=== PATIENT | male | born 1990 | race Caucasian/White ===

== ENCOUNTER 2016-07-06 17:40 | Emergency (ER) | payer OTHER ==
[~2016-07-06] VITALS: Ht 182.9 cm; Wt 68.0 kg
[2016-07-06 17:56] VITALS: BP 131/88; PULSE 126; RESP 16; TEMP 102.6; O2SAT 97
[2016-07-06] MEDS ORDERED: ZITHTAB PO (18:12)
[2016-07-06] MEDS ORDERED: DEXAMETHASONE SOD PHOS 20 MG/5 ML VIAL IV PUSH ONE (18:15)
[2016-07-06] MEDS ORDERED: SODIUM CHLOR 0.9% 1000 ML INJ 1,000 ML IV SCH (18:15)
[2016-07-06] MEDS ORDERED: KETOROLAC TROMETHAMINE 30 MG/ML (IVP) VIAL IV PUSH ONE (18:15)
--- NOTE | 2016-07-06 18:38 | PD ---
HPI Chief Complaint: Fever Time Seen by Provider: 18:02 Travel History International Travel<30 days: No Contact w/Intl Traveler<30days: No Traveled to known affect area: No History of Present Illness HPI So 35-year-old man who presents to the emergency department complaining of throat pain. States about a week or so ago he started getting sore throat and swelling of his tonsils. 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 Put him on a prescription for azithromycin. He states since that time he said worsening pain and swelling in his tonsils. Is having some worsening trouble swallowing. 50 versus Andrea and finds himself spitting sometimes. No shortness of breath. Fevers chills and night sweats especially at night. He didn't take his temperature. He otherwise has been feeling generally well before this. No URI symptoms. Nausea today but no nausea or vomiting before that. No other GI symptoms. Denies IV drug use. Has otherwise been feeling well and healthy. History Past Medical History Medical History: Denies Significant Hx Tetanus Vaccination: < 5 Years Influenza Vaccination: No Social History Alcohol Use: Yes (OCC) Tobacco Use: No Allergies-Medications (Allergen,Severity, Reaction): Coded Allergies: Amoxicillin (Verified Allergy, Intermediate, vomiting, 07/06/16) Reported Meds & Prescriptions Reported Meds & Active Scripts Active Reported Zithromax Z-Mehul (Azithromycin) 250 Mg Dspk 250 Mg PO DIRECTED 500 MG (2 tabs) day 1, then 1 tab days 2-5. Review of Systems Except as stated in HPI: all other systems reviewed are Neg Physical Exam Narrative GENERAL: Well-appearing 25-year-old man, no acute distress. SKIN: Warm and dry. HEAD: Atraumatic. Normocephalic. EYES: Pupils equal and round. No scleral icterus. No injection or drainage. ENT: No nasal bleeding or discharge. Mucous membranes pink and moist. Marked tonsillar adenopathy with purulent drainage. A little bit of pharyngeal erythema. NECK: Trachea midline. Mild anterior cervical adenopathy. CARDIOVASCULAR: Regular rate and rhythm. No murmur appreciated. RESPIRATORY: No accessory muscle use. Clear to auscultation. Breath sounds equal bilaterally. GASTROINTESTINAL: Abdomen soft, non-tender, nondistended. Hepatic and splenic margins not palpable. MUSCULOSKELETAL: No obvious deformities. No edema. NEUROLOGICAL: Awake and alert. No obvious cranial nerve deficits. Motor grossly within normal limits. Normal speech. Data Data Last Documented VS Vital Signs Date Time Temp Pulse Resp B/P Pulse Ox O2 Delivery O2 Flow Rate FiO2 07/06/16 18:09 97 Room Air 07/06/16 17:56 102.6 126 16 131/88 Orders Complete Blood Count With Diff (07/06/16 18:12) Comprehensive Metabolic Panel (07/06/16 18:12) Hiv Antibody Screen (07/06/16 18:12) Hiv-1 Dna Pcr (07/06/16 18:12) Monoscreen (07/06/16 18:12) Influenzae A/B Antigen (07/06/16 18:12) Group A Rapid Strep Screen (07/06/16 18:12) Soft Tissue Neck (07/06/16 ) Dexamethasone Inj (Decadron Inj) (07/06/16 18:15) Sodium Chlor 0.9% 1000 Ml Inj (Ns 1000 M (07/06/16 18:15) Ketorolac Inj (Toradol Inj) (07/06/16 18:15) MDM Medical Decision Making Medical Screen Exam Complete: Yes Emergency Medical Condition: Yes Differential Diagnosis Group A strep tonsillitis, epiglottitis, mononucleosis, acute retroviral syndrome, URI, other Narrative Course Medical decision making 24-year-old man presents with worsening tonsillar hypertrophy and swelling, high fevers, tachycardia, and muffled voice concerning for worsening tonsillitis or possibly epiglottitis. Reportedly Monospot and rapid strep are both negative. We'll repeat both of these. Consider acute retroviral syndrome , we'll check HIV RNA and antibody screen. We'll check lateral neck radiograph. Reassess. Benton Marcus MD Jul 06, 2016 18:37
[2016-07-06 19:03] VITALS: BP 159/90; PULSE 114; RESP 18; TEMP 100.6; O2SAT 97
[2016-07-06 19:06] LABS: AUTOMATED NEUTROPHIL # 5.4 TH/MM3 (1.8-7.7); BASOPHIL # 0.1 TH/MM3 (0-0.2); BASOPHIL % 0.8 % (0.0-2.0); EOSINOPHIL % 0.3 % (0.0-4.0); HEMATOCRIT 46.6 % (39.0-51.0); HEMO FLAGS DIFF FINAL; LYMPH % 32.7 % (9.0-44.0); LYMPHOCYTE # 3.5 TH/MM3 (1.0-4.8); MEAN CELL VOLUME 89.1 FL (80.0-100.0); MEAN CORPUSCULAR HEMOGLOBIN 29.7 PG (27.0-34.0); MEAN CORPUSCULAR HGB CONC 33.4 % (32.0-36.0); MONO % 15.3 % (0.0-8.0); NEUT % 50.9 % (16.0-70.0); PLATELET COUNT 216 TH/MM3 (150-450); RED BLOOD COUNT 5.23 MIL/MM3 (4.50-5.90); RED CELL DISTRIBUTION WIDTH 11.3 % (11.6-17.2); WHITE BLOOD COUNT 10.6 TH/MM3 (4.0-11.0)
[2016-07-06 19:26] LABS: CHLORIDE 103 MEQ/L (98-107); POTASSIUM 4.3 MEQ/L (3.5-5.1); SODIUM (NA) 139 MEQ/L (136-145)
[2016-07-06 19:30] LABS: ANION GAP 10 MEQ/L (5-15); BICARBONATE 26.4 MEQ/L (21.0-32.0); BLOOD UREA NITROGEN 18 MG/DL (7-18)
[2016-07-06 19:33] LABS: ALT (GPT) 78 U/L (12-78); AST (GOT) 33 U/L (15-37); GLOMERULAR FILTRATION RATE 93 ML/MIN (>89)
[2016-07-06 19:34] LABS: TOTAL BILIRUBIN ADULT 0.9 MG/DL (0.2-1.0)
[2016-07-06 19:36] LABS: ALKALINE PHOSPHATASE 71 U/L (45-117)
--- NOTE | 2016-07-06 19:41 | RADHPO ---
EXAM DATE/TIME: 07/06/2016 18:16 [facility] COMPARISON: No previous studies available for comparison. INDICATIONS : Swollen painful throat MEDICAL HISTORY : None. SURGICAL HISTORY : None. ENCOUNTER: Initial ACUITY: 2 weeks PAIN SCORE: 9/10 LOCATION: Bilateral neck FINDINGS: Two view examination of the soft tissues of the neck demonstrates the hypopharyngeal airway to have a grossly normal configuration except prominent adenoids. The trachea is midline. No radiopaque fore ign bodies are seen. CONCLUSION: Prominent adenoids. Exam otherwise unremarkable. Osbaldo Hendricks MD on July 06, 2016 at 19:39 Board Certified Radiologist. This report was verified electronically.
[2016-07-06 20:20] VITALS: BP 145/78; PULSE 102; RESP 18; O2SAT 97
--- NOTE | 2016-07-06 20:23 | PD ---
Physical Exam Time Seen by Provider: 20:[address] Marcus left this patient with me to check the results of the mono screen and make disposition. Data Data Last Documented VS Vital Signs Date Time Temp Pulse Resp B/P Pulse Ox O2 Delivery O2 Flow Rate FiO2 07/06/16 20:20 102 18 145/78 97 Room Air 07/06/16 19:03 100.6 Orders Complete Blood Count With Diff (07/06/16 18:12) Comprehensive Metabolic Panel (07/06/16 18:12) Hiv Antibody Screen (07/06/16 18:12) Hiv-1 Dna Pcr (07/06/16 18:12) Monoscreen (07/06/16 18:12) Influenzae A/B Antigen (07/06/16 18:12) Group A Rapid Strep Screen (07/06/16 18:12) Soft Tissue Neck (07/06/16 ) Dexamethasone Inj (Decadron Inj) (07/06/16 18:15) Sodium Chlor 0.9% 1000 Ml Inj (Ns 1000 M (07/06/16 18:15) Ketorolac Inj (Toradol Inj) (07/06/16 18:15) Strep Culture (Group A) (07/06/16 18:20) Labs Laboratory Tests Test 07/06/16 18:50 White Blood Count 10.6 TH/MM3 Red Blood Count 5.23 MIL/MM3 Hemoglobin 15.5 GM/DL Hematocrit 46.6 % Mean Corpuscular Volume 89.1 FL Mean Corpuscular Hemoglobin 29.7 PG Mean Corpuscular Hemoglobin 33.4 % Concent Red Cell Distribution Width 11.3 % Platelet Count 216 TH/MM3 Mean Platelet Volume 7.6 FL Neutrophils (%) (Auto) 50.9 % Lymphocytes (%) (Auto) 32.7 % Monocytes (%) (Auto) 15.3 % Eosinophils (%) (Auto) 0.3 % Basophils (%) (Auto) 0.8 % Neutrophils # (Auto) 5.4 TH/MM3 Lymphocytes # (Auto) 3.5 TH/MM3 Monocytes # (Auto) 1.6 TH/MM3 Eosinophils # (Auto) 0.0 TH/MM3 Basophils # (Auto) 0.1 TH/MM3 CBC Comment DIFF FINAL Differential Comment Sodium Level 139 MEQ/L Potassium Level 4.3 MEQ/L Chloride Level 103 MEQ/L Carbon Dioxide Level 26.4 MEQ/L Anion Gap 10 MEQ/L Blood Urea Nitrogen 18 MG/DL Creatinine 1.00 MG/DL Estimat Glomerular Filtration 93 ML/MIN Rate Random Glucose 86 MG/DL Calcium Level 8.5 MG/DL Total Bilirubin 0.9 MG/DL Aspartate Amino Transf 33 U/L (AST/SGOT) Alanine Aminotransferase 78 U/L (ALT/SGPT) Alkaline Phosphatase 71 U/L Total Protein 8.2 GM/DL Albumin 3.8 GM/DL Monoscreen POS MDM Medical Record Reviewed: Yes Supervised Visit with ENRIKE: Yes Interpretation(s) The patient has negative strep screen but is positive on his mono screen. 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 Differential Diagnosis Viral pharyngitis, mononucleosis, strep pharyngitis, HIVhighly unlikely Diagnosis Primary Impression: Infectious mononucleosis Additional Instruction: As we discussed, the prednisone is taken one tablet twice daily for 4 days followed by one tablet daily for 4 days. You are given off flying for one week for the reasons we discussed. Follow-up with a primary care physician next week. Med/Other Pt SpecificInfo: Prescription(s) given Scripts Prednisone 50 Mg Tab50 Mg PO BID #12 TAB Ref 0 Prov:Wesly Wagner MD 07/06/16 Disposition: 01 DISCHARGE HOME Condition: Stable Wesly Wagner MD Jul 06, 2016 20:23
[2016-07-06] MEDS ORDERED: PRED50 PO (20:25)
== END 2016-07-06 20:50 | disposition home or self-care (01) ==
LOC: PHED 17:40
DX: B27.90 Infectious mononucleosis, unspecified without complication (principal); R11.0 Nausea; R13.10 Dysphagia, unspecified; J35.1 Hypertrophy of tonsils; R00.0 Tachycardia, unspecified
CPT/HCPCS: 70360; 80053; 85025; 86308; 86703; 87081; 87535; 87804; 87880; 96361; 96374; 96375; 99283; J1100; J1885; J7030